=== PATIENT | female | born 1950 | race Caucasian/White ===

== ENCOUNTER → 2017-03-30 | Outpatient (CLI) | payer OTHER ==
[~2017-03-30] VITALS: Ht 160 cm; Wt 97.5 kg
[~2017-03-30] MED LIST: ALBU6.7H INH; CHLORHEXIDINE GLUCONATE 2 % 1 PACK (2 CLOTHS) TOPICAL PRN; IBUP200T2 PO; INSULIN HUMAN REGULAR 1,000 UNITS/10 ML VIAL SQ PRN; LACTATED RINGER'S 1000 ML IV PRN; LOSA50TA PO; METF500T PO; METOPROLOL TARTRATE 25 MG TAB PO PRN; POVIDONE IODINE 5% (ANTISEPSIS KIT) 4 APPLICATIONS EACH NARE PRN; PROPOFOL 200 MG/20 ML AMP IV ONE; RANI150C PO; SODIUM CHLORID 0.9% 500 ML IV PRN
[2017-03-30 10:39] VITALS: BP 147/95; PULSE 74; RESP 20; TEMP 98.7; O2SAT 98
--- NOTE | 2017-03-30 11:21 | EKG ---
Date Performed: 03/30/2017 Time Performed: 10:12:10 PTAGE: 67 years EKG: Sinus rhythm NORMAL ECG NO PREVIOUS TRACING DOCTOR: Shubham Huizar Interpretating Date/Time 03/30/2017 11:19:32
[2017-03-30 13:35] VITALS: TEMP 97.8
[2017-03-30 13:50] VITALS: BP 146/79; PULSE 76; RESP 18; O2SAT 96
--- NOTE | 2017-03-30 15:30 | MR ---
cc: SANDI CAROLINA M.D. DATE 03/30/17 INDICATION FOR PROCEDURE 1. Evaluation of chronic gastroesophageal reflux disease. 2. Evaluation for increased risk colon screening. The patient has a prior history of colorectal polyps. Photographs and biopsies were taken. PREMEDICATION Administered by anesthesiology. MONITORING Pulse oximeter, EKG, blood pressure monitor. PROCEDURE NOTE After informed consent was obtained and the procedure risks and benefits were explained including the risk of bleeding, sepsis, perforation, risks of anesthesia, risks of missing lesions. The patient was placed in the left lateral position. The video endoscope was inserted per the oral route. The esophagus appeared to be normal with normal Z-line. No active esophagitis was seen. The stomach was entered. Gastric mucosa was also normal. In the retroflex view the cardia and fundus were normal. Scope was passed through the pylorus into the duodenal bulb. There was some mild duodenitis noted at the posterior bulbar region. Scope was advanced to the second and third portion of the duodenum. The rest of the duodenum was unremarkable. Antral biopsies x4 were taken to rule out H. Pylori. The scope was withdrawn. The patient tolerated this well. She was repositioned and colonoscopy was performed. The video colonoscope was inserted per rectum and passed to the cecum in the usual fashion. Mucosa throughout was normal. The scope was gradually withdrawn. Colon extraction time was greater than 8 minutes. Preparation was very good. In the transverse colon there was a small fold or a small ___ polyp, 4 or 5 mm. Noted this was biopsied x2. In the rectum the scope was retroflexed, grade 2 internal hemorrhoids were noted without any active bleeding. The scope was straightened and removed. The patient tolerated the procedure well. IMPRESSION 1. Mild bulbar duodenitis. 2. Antral biopsies taken to rule H. Pylori. 3. Normal esophagus. 4. Colonoscopy was relatively benign except for perhaps a small polyp or fold in the transverse colon that was biopsied. Internal hemorrhoids grade 2 were noted. PLAN We will follow up with the biopsies taken today. Recommend continuation of antireflux therapy. Recommend repeat colonoscopy in 5 years. MD BRITTANY Miles/SHILPI /1:41 PM /3:07 PM
== END ==
LOC: HEND 09:20
PROVIDERS: ATTEND Internal Medicine Gastroenterology
DX: Z12.11 Encounter for screening for malignant neoplasm of colon (principal); K21.9 Gastro-esophageal reflux disease without esophagitis; Z86.010 Personal history of colon polyps; D12.3 Benign neoplasm of transverse colon; K29.70 Gastritis, unspecified, without bleeding; K29.80 Duodenitis without bleeding; K64.8 Other hemorrhoids; Z01.810 Encounter for preprocedural cardiovascular examination
CPT/HCPCS: 88305; 88312; 93005